=== PATIENT | female | born 1985 | race Two or more races ===

== ENCOUNTER 2018-04-14 04:41 | Emergency (ER) | payer SELFPAY ==
[~2018-04-14] VITALS: Ht 162.6 cm; Wt 59.0 kg
[2018-04-14 04:57] VITALS: BP 100/61
[2018-04-14] MEDS ORDERED: HYDROCODONE/APAP 5/325MG 1 EACH TABLET ONE (06:26)
[2018-04-14] MEDS ORDERED: HYDROCODONE/APAP 5/325MG 1 EACH TABLET PO ONE (06:30)
--- NOTE | 2018-04-14 06:34 | NUR ---
Patient discharged to home in stable condition. Written and verbal after care instructions given. Patient verbalizes understanding of instruction. CRUZ TAPE APPLIED. [facility] WNL.
== END 2018-04-14 06:36 | disposition home or self-care (01) ==
LOC: ER 04:51
DX: S92.532A Displaced fracture of distal phalanx of left lesser toe(s), initial encounter for closed fracture (principal); X50.1XXA Overexertion from prolonged static or awkward postures, initial encounter; Y93.89 Activity, other specified; Y92.89 Other specified places as the place of occurrence of the external cause; Y99.8 Other external cause status
CPT/HCPCS: 73610; 73630; 99283; A4606; Z7610